=== PATIENT | male | born 1955 ===

== ENCOUNTER → 2020-02-01 | Outpatient (CLI) | payer OTHER | END | disposition home or self-care (01) | LOC: LAB SHORT 11:00 → LAB 11:00 | DX: L02.214 Cutaneous abscess of groin (principal) | CPT/HCPCS: 87070; 87075; 87205 ==

== ENCOUNTER 2020-11-13 00:16 | Inpatient (IN) | payer MEDICARE, OTHER ==
[~2020-11-13] VITALS: Ht 182.9 cm; Wt 115.0 kg
[2020-11-13 01:53] LABS: BASOPHILS ABSOLUTE AUTO 0.03 K/mm3 (0.00-0.23); BASOPHILS PERCENT AUTO 0 % (0-2); EOSINOPHILS PERCENT AUTO 0 % (0-6); Hematocrit 45.8 % (37.0-53.0); Hemoglobin 15.9 g/dL (13.5-17.5); IMMATURE GRAN ABSOLUTE AUTO 0.19 K/mm3 (0.00-0.10); IMMATURE GRAN PERCENT AUTO 1 % (0-1); LYMPHOCYTES PERCENT AUTO 5 % (21-46); MONOCYTES ABSOLUTE AUTO 1.03 K/mm3 (0.16-1.47); MONOCYTES PERCENT AUTO 6 % (4-13); Mean Corpuscular HGB 28.2 pg (26.0-34.0); Mean Corpuscular HGB Conc 34.7 g/dL (31.5-36.5); Mean Corpuscular Volume 81 fL (80-100); Mean Platelet Volume 10.9 fL (9.1-12.4); NEUTROPHILS ABSOLUTE AUTO 14.83 K/mm3 (1.96-9.15); NEUTROPHILS PERCENT AUTO 88 % (41-73); Platelet Count 323 K/mm3 (150-400); RDW Coefficient Variation 13.5 % (11.7-14.2); RDW Standard Deviation 39.9 fL (35.1-46.3); Red Blood Cell Count 5.63 M/mm3 (4.30-5.90); White Blood Cell Count 16.88 K/mm3 (4.00-11.30)
[2020-11-13] MEDS ORDERED: CARBIDOPA-LEVO1 EA21 PO (01:56)
[2020-11-13 02:20] LABS: Troponin I 0.025 ng/mL (0.000-0.040)
[2020-11-13 02:22] LABS: Albumin, Blood 3.4 g/dL (3.4-5.0); Albumin/Globulin Ratio 0.7 (0.8-1.8); Bilirubin, Total 0.9 mg/dL (0.1-1.0); Bun/Creatinine Ratio 13.6 (12.0-20.0); Calcium, Blood 9.2 mg/dL (8.5-10.1); Creatinine, Blood 4.71 mg/dL (0.60-1.20); Globulin, Blood 4.9 g/dL (2.2-4.0); Potassium, Blood 6.2 mmol/L (3.5-5.5); Total Protein, Blood 8.3 g/dL (6.4-8.2)
[2020-11-13 02:37] LABS: Creatine Kinase MB 7.1 ng/mL (0.0-3.6); Creatine Kinase MB Index 0.5 (0.0-4.0)
[2020-11-13 06:29] LABS: Bun/Creatinine Ratio 14.7 (12.0-20.0); Calcium, Blood 8.5 mg/dL (8.5-10.1); Creatinine, Blood 4.36 mg/dL (0.60-1.20); Potassium, Blood 4.5 mmol/L (3.5-5.5)
--- NOTE | 2020-11-13 07:37 | NUR ---
SHIFT SUMMARY PT ARRIVED TO MED UNIT AT 0550, ESCORTED BY ER STAFF. PT WAS TRANSFERRED FROM ER [facility] TO MED BED WITH 3 STAFF ASSIST AND A SLIDE SHEET. PT IS ON ROOM AIR SATING AT 95%. HE HAS IV ACCESS IN LEFT FA. HE HAS TREMORS AT BASELINE, AND WEAKNESS R/T PARKINSONS. REDDENED AREA IN THE GROIN WITH OPEN, WEEPING SKIN. HE IS WEARING ATTENDS. TOOK PILLS ONE AT A TIME IN APPLESAUCE.
[2020-11-13] MEDS ORDERED: BACL10 PO (13:20)
[2020-11-13] MEDS ORDERED: RYTARY ER 61.21 EAC1 PO (13:20)
--- NOTE | 2020-11-13 19:28 | NUR ---
SHIFT SUMMARY: NO ACUTE EVENTS TO REPORT THIS SHIFT. PT SLEEPING T/O SHIFT. PT A&O X1-2. CONFUSED; PULLED IV; PT NOW IN BILATERAL SOFT WRIST RESTRAINTS TO PROTECT SELF & LINES. STRAIGHT CATH X1 THIS SHIFT FOR BLADDER SCAN VOLUME >500; 575ML OUT; PT TOLERATED WELL. RENAL (DR HOLCOMB) FOLLOWING; REHYDRATION CONTINUING. REPORT GIVEN TO ONCOMING RN.
--- NOTE | 2020-11-14 03:14 | NUR ---
RESTRAINT DISCONTINUED PT'S RESTRAINTS WERE DISCONTINUED AT 0100. HE DEMONSTRATES THAT HE IS ABLE TO REMAIN IN BED AND UNDERSTANDS HIS RISK FOR FALLS. COGNITION HAS IMPROVED - HE IS ABLE TO GIVE RESPONSES TO QUESTIONS, AND DEMONSTRATED THE USE OF CALL LIGHTS APPROPRIATELY BY CALLING FOR HELP WITH HIS TV OR TO ASK FOR SNACKS. WILL CONTINUE TO MONITOR.
--- NOTE | 2020-11-14 03:42 | NUR ---
SHIFT SUMMARY ALTHEA'S COGNITION IMPROVED GREATLY THIS EVENING. HE IS ABLE TO ANSWER QUESTIONS IN CLEAR SPEECH AND USE HIS CALL LIGHT APPROPRIATELY. HE DEMONSTRATED HIS ABILITY TO REMAIN SAFE, SO RESTRAINTS WERE DISCONTINUED AT 0100. HE IS FEEDING HIMSELF, HOB UP 90. BLADDER SCANNED AT 2220 AND STRAIGHT CATH YIELDED 575 MLS OF DARK YELLOW URINE. REDNESS ON GROIN TREATED WITH MUPIROCIN OINTMENT. CONTINUOUS BI-OX SHOWS SATS GREATER THAN 90% ON ROOM AIR. VSS. WILL CONTINUE TO MONITOR.
--- NOTE | 2020-11-14 04:16 | NUR ---
PHONE CALL TO DR Byrne PLACED PHONE CALL TO DR. PERKINS WITH REQUEST FOR ORDERS FOR CONTINUOUS PULSE OXIMETRY. ORDERS RECEIVED, AND UPDATED.
[2020-11-14 05:25] LABS: Hematocrit 39.4 % (37.0-53.0); Hemoglobin 13.7 g/dL (13.5-17.5)
[2020-11-14 05:48] LABS: Albumin, Blood 2.7 g/dL (3.4-5.0); Anion Gap 10 mmol/L (6-16); Blood Urea Nitrogen 63 mg/dL (8-24); Bun/Creatinine Ratio 21.8 (12.0-20.0); CO2, Blood 25 mmol/L (21-32); Calcium, Blood 7.7 mg/dL (8.5-10.1); Chloride, Blood 100 mmol/L (98-108); Creatinine, Blood 2.89 mg/dL (0.60-1.20); Glomerular Filtration Rate 22 (60-); Glucose, Blood 181 mg/dL (70-99); Magnesium, Blood 2.2 mg/dL (1.6-2.4); Phosphorus, Blood 3.2 mg/dL (2.5-4.9); Potassium, Blood 3.4 mmol/L (3.5-5.5); Sodium, Blood 135 mmol/L (136-145)
--- NOTE | 2020-11-14 06:42 | NUR ---
CRITICAL VALUE RECEIVED PHONE CALL FROM MICROBIOLOGY - PT'S FIRST POSITIVE BLOOD CULTURE GRAM POSITIVE COCCI IN CLUSTERS. NOTIFIED CHARGE NURSE/ NOTIFIED DR. FLORES VIA TELEPHONE. DR. FLORES WITH ORDERS FOR ROCEPHIN 1 GRAM IV DAILY.
[2020-11-14 16:01] LABS: Source, Urine Catheter
[2020-11-14 16:12] LABS: Bilirubin, Urine Neg (Neg); Blood, Urine 3+ (Neg); Color, Urine Yellow (P-Yellow); Glucose Qualitative, Urine 2+ (Neg); Ketones, Urine Neg (Neg); Leukocyte Esterase, Urine Neg (Neg); Nitrite, Urine Neg (Neg); Protein, Urine 2+ (Neg); Specific Gravity, Urine 1.015 (1.003-1.022); Urobilinogen, Urine NORM (Normal)
[2020-11-14 16:23] LABS: Appearance, Urine Hazy (Clear)
[2020-11-14 16:29] LABS: Bacteria Mod /hpf; Red Blood Cells, Urine 0-2 /hpf (0-2); Squamous Epithelial Cells Rare /hpf (Few); Transitional Epithelial Cells Rare /hpf (0-Rare); White Blood Cells, Urine 0-2 /hpf (0-5)
[2020-11-14 16:30] LABS: Amorphous Light (0-Heavy)
[2020-11-14 16:31] LABS: Granular Casts Rare /lpf (0)
--- NOTE | 2020-11-14 17:18 | NUR ---
SHIFT SUMMARY PATIENT A/O X4 THIS SHIFT. PATIENT UNABLE TO STAND TO GET TO THE BATHROOM THIS AM. NOTIFIED, PT EVALUATION ORDERED. PT WORKED WITH PATIENT, ABLE TO GET PATIENT TO THE BEDSIDE WITH SIGNIFICANT ASSISTANCE. PATIENT'S DAUGHTER STATES PATIENT ABLE TO STAND AND WALK AT HOME AT BASELINE. PATIENT UNABLE TO VOID THIS SHIFT AFTER MULTIPLE ATTEMPTS. BLADDER SCAN PER ORDERS REVEAL 583 ML URINE THIS AFTERNOON, POST ATTEMPT TO VOID. DR HOLCOMB NOTIFIED, ORDERS FOR MONDRAGON RECEIVED, MONDRAGON PLACED AND DRAINING TO GRAVITY. URINE SAMPLE SENT TO LAB. PATIENT'S GROIN CONTINUES TO BE INFLAMED, MEDICATED PER EMAR. PATIENT STATES HE DIDN'T KNOW THE SKIN AROUND HIS GROIN WAS RED AND INFLAMED. PATIENT SITTING UP IN BED WATCHING TELEVISION THROUGHOUT THIS SHIFT. PATIENT DENIES SOB OR DIFFICULTY BREATHING. VSS.
[2020-11-15 05:03] LABS: Hematocrit 38.2 % (37.0-53.0); Hemoglobin 13.2 g/dL (13.5-17.5)
[2020-11-15 05:36] LABS: Albumin, Blood 2.5 g/dL (3.4-5.0); Anion Gap 6 mmol/L (6-16); Blood Urea Nitrogen 44 mg/dL (8-24); Bun/Creatinine Ratio 25.4 (12.0-20.0); CO2, Blood 25 mmol/L (21-32); Calcium, Blood 7.3 mg/dL (8.5-10.1); Chloride, Blood 106 mmol/L (98-108); Creatinine, Blood 1.73 mg/dL (0.60-1.20); Glomerular Filtration Rate 40 (60-); Glucose, Blood 131 mg/dL (70-99); Phosphorus, Blood 2.1 mg/dL (2.5-4.9); Potassium, Blood 3.7 mmol/L (3.5-5.5); Sodium, Blood 137 mmol/L (136-145)
[2020-11-15] MEDS ORDERED: HYDRA25 PO (11:17)
--- NOTE | 2020-11-15 17:15 | NUR ---
SHIFT SUMMARY PATIENT ALERT AND ORIENTED, SLOW TO RESPOND AT TIMES, THIS SHIFT. PATIENT REMAINS IN BED, STIFF MOVEMENTS. NO ACUTE CHANGES THIS SHIFT. PATIENT STATES BREATHING STILL WITHOUT DISTRESS, O2 SATS > 92 ON RA. PATIENT UP IN BED WATCHING TELEVISION THROUGHOUT THIS SHIFT. CALL LIGHT IN REACH, PATIENT ABLE TO MAKE NEEDS KNOWN. PATIENT CURRENTLY UP WATCHING TELEVISION.
--- NOTE | 2020-11-16 04:55 | NUR ---
SHIFT SUMMARY: PT IS ALERT AND ORIENTED. PT IS CALM AND COOPERATIVE WITH CARE. PT REQUIRES MAX ASSISTANCE FOR TRANSFERS, NOT OUT OF BED OVERNIGHT. PT CALLS APPROPRIATELY. PT DENIES PAIN, NAUSEA, VOMITING, AND SOB. PT REMAINS ON ROOM AIR WITH SATS > 90%. NO ACUTE CHANGES OR COMPLICATIONS OVERNIGHT. BED IN LOW POSITION, CALL LIGHT WITHIN REACH. WILL CONTINUE TO MONITOR AND REPORT TO DAY NURSE.
[2020-11-16 05:27] LABS: Hematocrit 40.8 % (37.0-53.0); Hemoglobin 13.3 g/dL (13.5-17.5)
[2020-11-16 05:51] LABS: Albumin, Blood 2.4 g/dL (3.4-5.0); Anion Gap 7 mmol/L (6-16); Blood Urea Nitrogen 33 mg/dL (8-24); Bun/Creatinine Ratio 24.6 (12.0-20.0); CO2, Blood 25 mmol/L (21-32); Calcium, Blood 7.5 mg/dL (8.5-10.1); Chloride, Blood 109 mmol/L (98-108); Creatinine, Blood 1.34 mg/dL (0.60-1.20); Glomerular Filtration Rate 54 (60-); Glucose, Blood 131 mg/dL (70-99); Magnesium, Blood 1.7 mg/dL (1.6-2.4); Phosphorus, Blood 1.7 mg/dL (2.5-4.9); Potassium, Blood 4.1 mmol/L (3.5-5.5); Sodium, Blood 141 mmol/L (136-145)
--- NOTE | 2020-11-16 10:36 | NUR ---
ROOM TRANSFER PT TRANSFERRED TO ROOM 325. REPORT GIVEN TO DAVID COTTO. NO ACUTE CHANGES NOTED TO PT PRIOR TO TRANSFER. DENIES ANY DISCOMFORT. AAOX3, ABLE TO MAKE NEEDS KNOWN. PT TRANSFERRED VIA BED.
--- NOTE | 2020-11-16 20:05 | NUR ---
pt a+o working with pt and ot, each time getting further, parkinson medication changed to home dosage when family brought in bottle of med and said that symptoms could be result of lack of medication, agreed to allow home dosage and medication, meds sent to pharmacy for label and placed in drawer after outside was sanitized, call light in reach, saline locked, rm air, report shared with noc nurse
--- NOTE | 2020-11-17 04:14 | NUR ---
SHIFT SUMMARY ADMITTED FOR COVID 19/LORI. FULL CODE. DROPLET CONTACT PRECAUTIONS FOR COVID + STATUS. MONDRAGON IN PLACE. TELEMETRY: MELANIE @ 51 BPM. HE HAS BEEN RUNNING HYPERTENSIVE, THIS SEEMS TO BE IMPROVING THIS SHIFT. DR HOLCOMB IS RENAL CONSULT. NATALIE AREA IS EXCORIATED. ANTI FUNGAL CREAM IS PRESCRIBED. HE HAS BEEN COOPERATIVE WITH CARE THIS SHIFT. IV FLUIDS INFUSING ORDERED.
[2020-11-17 05:30] LABS: Hematocrit 41.2 % (37.0-53.0); Hemoglobin 13.7 g/dL (13.5-17.5)
[2020-11-17 06:07] LABS: Albumin, Blood 2.3 g/dL (3.4-5.0); Anion Gap 7 mmol/L (6-16); Blood Urea Nitrogen 29 mg/dL (8-24); Bun/Creatinine Ratio 24.4 (12.0-20.0); CO2, Blood 26 mmol/L (21-32); Calcium, Blood 7.4 mg/dL (8.5-10.1); Chloride, Blood 108 mmol/L (98-108); Creatinine, Blood 1.19 mg/dL (0.60-1.20); Glomerular Filtration Rate >60 (60-); Glucose, Blood 129 mg/dL (70-99); Magnesium, Blood 1.5 mg/dL (1.6-2.4); Phosphorus, Blood 2.5 mg/dL (2.5-4.9); Potassium, Blood 3.9 mmol/L (3.5-5.5); Sodium, Blood 141 mmol/L (136-145)
[2020-11-17] MEDS ORDERED: MUPIROCIN1 G1 TOP (10:56)
[2020-11-17] MEDS ORDERED: NYSTATIN15 GM TOP (10:56)
[2020-11-17] MEDS ORDERED: VISBIOME 112.51 EACH PO (10:57)
[2020-11-17] MEDS ORDERED: VITAMIN D31000 UNI1 PO (10:57)
--- NOTE | 2020-11-17 14:28 | NUR ---
DISCHARGE DISCHARGE INSTRUCTIONS, MEDICATION LIST AND FOLLOW UP APPOINTMENTS REVIEWED WITH PT AND HIS DAUGHTER CHESTER. QUESTIONS/CONCERNS ANSWERED AND BOTH VERBALLY INDICATED UNDERSTANDING OF ALL INSTRUCTIONS RECEIVED. ESCORTED OUT VIA W/C BY ABHIJIT
== END 2020-11-17 14:19 | disposition home health service (06) | DRG 871 ==
LOC: ER 00:16 → MEDS 03:10 → ERHOLD 03:10 → MEDS 05:54
PROVIDERS: Emergency Medicine; Internal Medicine Nephrology; ADMIT Family Medicine
PROC: 8E0ZXY6 Isolation (ICD-10-PCS; principal; 2020-11-13)
PROC: 3E0DX3Z Introduction of Anti-inflammatory into Mouth and Pharynx, External Approach (ICD-10-PCS; 2020-11-13)
DX: A41.89 Other specified sepsis (principal); U07.1 COVID-19; J12.82 Pneumonia due to coronavirus disease 2019; G92 Toxic encephalopathy; N17.9 Acute kidney failure, unspecified; M62.82 Rhabdomyolysis; E87.1 Hypo-osmolality and hyponatremia; E87.2 Acidosis; R65.20 Severe sepsis without septic shock; G20 Parkinson's disease; E87.5 Hyperkalemia; E87.6 Hypokalemia; B35.6 Tinea cruris; E83.39 Other disorders of phosphorus metabolism; D63.1 Anemia in chronic kidney disease; E86.9 Volume depletion, unspecified; F02.80 Dementia in other diseases classified elsewhere, unspecified severity, without behavioral disturbance, psychotic disturbance, mood disturbance, and anxiety; R79.89 Other specified abnormal findings of blood chemistry; E88.09 Other disorders of plasma-protein metabolism, not elsewhere classified; N18.30 Chronic kidney disease, stage 3 unspecified; I12.9 Hypertensive chronic kidney disease with stage 1 through stage 4 chronic kidney disease, or unspecified chronic kidney disease; Z96.659 Presence of unspecified artificial knee joint; Z79.899 Other long term (current) drug therapy
CPT/HCPCS: 36415; 71045; 76770; 80048; 80053; 80069; 81001; 82550; 82553; 83605; 83690; 83735; 84145; 84484; 85014; 85018; 85025; 87040; 87086; 93005; 93010; 94762; 96374; 96375; 97110; 97162; 97165; 97530; 99285-25; A9270; J0360; J0696; J1644; J1815; J3010; J3475; J7030; J7060; J7070

== ENCOUNTER → 2021-01-18 | Outpatient (CLI) | payer MEDICARE, OTHER ==
[~2021-01-18] MED LIST: BACL10 PO; CARBIDOPA-LEVO1 EA21 PO; HYDRA25 PO; MUPIROCIN1 G1 TOP; NYSTATIN15 GM TOP; RYTARY ER 61.21 EAC1 PO; VISBIOME 112.51 EACH PO; VITAMIN D31000 UNI1 PO
[2021-01-18 15:13] LABS: Magnesium, Blood 1.9 mg/dL (1.6-2.4)
[2021-01-18 15:15] LABS: Alanine Aminotransfer (ALT/SGP 9 U/L (12-78); Albumin, Blood 3.5 g/dL (3.4-5.0); Albumin/Globulin Ratio 0.9 (0.8-1.8); Alk Phos 70 U/L (50-136); Anion Gap 3 mmol/L (6-16); Aspartate Aminotrans (AST/SGOT 8 U/L (12-37); Bilirubin, Total 0.5 mg/dL (0.1-1.0); Blood Urea Nitrogen 28 mg/dL (8-24); Bun/Creatinine Ratio 24.1 (12.0-20.0); CO2, Blood 28 mmol/L (21-32); Calcium, Blood 9.2 mg/dL (8.5-10.1); Chloride, Blood 108 mmol/L (98-108); Creatinine, Blood 1.16 mg/dL (0.60-1.20); Globulin, Blood 3.8 g/dL (2.2-4.0); Glomerular Filtration Rate >60 (60-); Glucose, Blood 89 mg/dL (70-99); Potassium, Blood 4.9 mmol/L (3.5-5.5); Sodium, Blood 139 mmol/L (136-145); Total Protein, Blood 7.3 g/dL (6.4-8.2)
== END | disposition home or self-care (01) ==
LOC: LAB SHORT 12:30
PROVIDERS: Physician Assistant
DX: E83.42 Hypomagnesemia (principal); R74.01 Elevation of levels of liver transaminase levels
CPT/HCPCS: 80053; 83735

== ENCOUNTER → 2021-04-19 | Outpatient (CLI) | payer MEDICARE, OTHER ==
[2021-04-19 16:13] LABS: Magnesium, Blood 1.9 mg/dL (1.6-2.4)
[2021-04-19 16:22] LABS: Albumin, Blood 3.5 g/dL (3.4-5.0); Albumin/Globulin Ratio 1.1 (0.8-1.8); Bilirubin, Total 0.6 mg/dL (0.1-1.0); Bun/Creatinine Ratio 23.4 (12.0-20.0); Calcium, Blood 8.9 mg/dL (8.5-10.1); Creatinine, Blood 1.24 mg/dL (0.60-1.20); Globulin, Blood 3.1 g/dL (2.2-4.0); Total Protein, Blood 6.6 g/dL (6.4-8.2)
== END | disposition home or self-care (01) ==
LOC: LAB SHORT 15:01
PROVIDERS: Physician Assistant
DX: E83.42 Hypomagnesemia (principal); R94.4 Abnormal results of kidney function studies
CPT/HCPCS: 80053; 83735